=== PATIENT | female | born 1990 | race Two or more races ===

== ENCOUNTER 2018-06-17 21:00 | Emergency (ER) | payer SELFPAY ==
[2018-06-17 22:13] LABS: ABSOLUTE BASOPHILS # (AUTO) 0.1 10^3/uL (0.0-0.2); ABSOLUTE EOSINOPHILS # (AUTO) 0.1 10^3/uL (0.0-0.6); ABSOLUTE LYMPHOCYTES (AUTO) 1.7 10^3/uL (0.5-4.7); ABSOLUTE MONOCYTES (AUTO) 0.5 10^3/uL (0.1-1.4); ABSOLUTE NEUT (AUTO) 5.6 10^3/uL (1.7-8.2); BASOPHILS % (AUTO) 0.8 % (0-2); EOSINOPHILS % (AUTO) 1.4 % (0-6); HEMATOCRIT 38.4 % (36.0-47.0); HEMOGLOBIN 13.2 g/dL (12.0-15.5); LYMPHOCYTES % (AUTO) 21.7 % (13-45); MEAN CORPUSCULAR HEMOGLOBIN 30.1 pg (27.0-33.4); MEAN CORPUSCULAR HGB CONC 34.4 g/dL (32.0-36.0); MEAN CORPUSCULAR VOLUME 87 fl (80-97); MONOCYTES % (AUTO) 6.7 % (3-13); PLATELET COUNT 261 10^3/uL (150-450); RED BLOOD COUNT 4.39 10^6/uL (3.72-5.28); RED CELL DISTRIBUTION WIDTH 13.3 % (11.5-14.0); SEGMENTED NEUTROPHILS % (AUTO) 69.4 % (42-78); TOTAL CELLS COUNTED % (AUTO) 100 %; WHITE BLOOD COUNT 8.1 10^3/uL (4.0-10.5)
[2018-06-17] MEDS ORDERED: NORMAL SALINE 1000 ML 1,000 ML IV ONE (22:20)
[2018-06-17] MEDS ORDERED: ONDANSETRON HCL INJ/PF 4 MG/2 ML SDV IV ONE (22:20)
[2018-06-17] MEDS ORDERED: FAMOTIDINE INJ/PF 20 MG/2 ML SDV IV ONE (22:22)
--- NOTE | 2018-06-17 22:23 | ER Document Report ---
ED General - General Chief Complaint: Abdominal Pain Stated Complaint: ABDOMINAL PAIN Time Seen by Provider: 06/17/18 21:20 Notes: Patient is a 28-year-old female without chronic medical history although has a history of gastritis that was severe enough to result in hospitalization in the past, no prior abdominal surgical history beyond C-sections who presents with several hours of severe epigastric abdominal pain with associated nausea and vomiting. Does describe the pain in her upper abdomen as being a severe, throbbing, burning pain that radiates up into her chest. States this feels very similar to when she had gastritis in the past. She has not trying to improve her symptoms. Symptoms did start after eating dinner. Has not had fever, diarrhea or constitutional symptoms. She does not have a primary care physician. She states that in the past she was on medication to protect from gastritis but discontinued that medication at least one year ago. The history and physical exam was obtained by the provider using Japanese. A formal hospital lease out worker was offered to the patient and any family at the bedside at the beginning of the encounter and was declined. TRAVEL OUTSIDE OF THE [place] IN LAST 30 DAYS: No - Related Data Allergies/Adverse Reactions: No Known Allergies Allergy (Unverified 06/17/18 21:03) Past Medical History - General Information source: Patient - Social History Smoking Status: Never Smoker Frequency of alcohol use: None Drug Abuse: None Lives with: Spouse/Significant other Family History: Reviewed & Not Pertinent Patient has suicidal ideation: No Patient has homicidal ideation: No Renal/ Medical History: Denies: Hx Peritoneal Dialysis Past Surgical History: Reports: Hx Section Review of Systems - Review of Systems Notes: Constitutional: Negative for fever. HENT: Negative for sore throat. Eyes: Negative for visual changes. Cardiovascular: Negative for chest pain. Respiratory: Negative for shortness of breath. Gastrointestinal: Positive for abdominal pain and vomiting Genitourinary: Negative for dysuria. Musculoskeletal: Negative for back pain. Skin: Negative for rash. Neurological: Negative for headaches, weakness or numbness. 10 point ROS negative except as marked above and in HPI. Physical Exam - Vital signs Vitals: Pulse Resp BP Pulse Ox 57 L 14 95/55 L 100 06/17/18 21:16 06/17/18 21:16 06/17/18 21:16 06/17/18 21:16 Interpretation: Hypotensive Notes: PHYSICAL EXAMINATION: GENERAL: Appears moderately uncomfortable but in no acute distress HEAD: Atraumatic, normocephalic. EYES: Pupils equal round and reactive to light, extraocular movements intact, sclera anicteric, conjunctiva are normal. ENT: nares patent, oropharynx clear without exudates. Dry mucous membranes. NECK: Normal range of motion, supple without lymphadenopathy LUNGS: Breath sounds clear to auscultation bilaterally and equal. No wheezes rales or rhonchi. HEART: Regular rate and rhythm without murmurs ABDOMEN: Soft, mild focal tenderness to her epigastrium but no other localized areas of abdominal tenderness, normoactive bowel sounds. No guarding, no rebound. No masses appreciated. EXTREMITIES: Normal range of motion, no pitting or edema. No cyanosis. NEUROLOGICAL: No focal neurological deficits. Moves all extremities spontaneously and on command. PSYCH: Moderately anxious SKIN: Warm, Dry, normal turgor, no rashes or lesions noted. Course - Re-evaluation Re-evalutation: 06/17/18 22:23 Patient presents with epigastric abdominal pain with associated reflux symptoms most consistent with likely gastritis. Patient reports a previous history of the same as well as being off of her normal gastritis medications and multiple dietary indiscretions. Patient has no focal abdominal tenderness on examination and mild localized tenderness to the epigastrium. Right upper quadrant ultrasound does not demonstrate any evidence of acute cholecystitis. Lipase is normal. No LFT changes. Based on history and exam, I do not suspect ACS, pulmonary embolus, SBO, mesenteric ischemia, acute pancreatitis, biliary pathology, or an abdominal aortic dissection. Patient has had improvement of symptoms here with a GI cocktail. At this time will discharge with return precautions and follow-up recommendations. Verbal discharge instructions given a the bedside and opportunity for questions given. Medication warnings reviewed. Patient is in agreement with this plan and has verbalized understanding of return precautions and the need for primary care follow-up in the next 24-72 hours. - Vital Signs Vital signs: Temp Pulse Resp BP Pulse Ox 57 L 19 100/68 100 06/17/18 21:16 06/18/18 01:01 06/18/18 01:01 06/18/18 01:01 - Laboratory Result Diagrams: 06/17/18 22:05 06/17/18 22:05 Laboratory results interpreted by me: 06/17/18 22:05 Carbon Dioxide 20 L Creatinine 0.46 L Glucose 120 H - Diagnostic Test Radiology reviewed: Reports reviewed Discharge - Discharge Clinical Impression: Epigastric abdominal pain, Gastritis/duodenitis Nausea and vomiting Qualifiers: Vomiting type: unspecified Vomiting Intractability: non-intractable Qualified Code(s): R11.2 - Nausea with vomiting, unspecified Condition: Good Disposition: HOME, SELF-CARE Additional Instructions: Your symptoms appear to be most consistent with stomach or upper intestinal irritation. Please begin taking famotidine 40 mg in the morning and 40 mg at night. This medicine can be purchased directly [id number]. You may also take medicine such as Pepto-Bismol or Tums to assist with your pain. Please return to emergency department immediately if you have worsening of your pain, shortness of breath, vomiting, become unable to exert yourself due to pain or difficulty breathing, you pass out, or have any pain that radiates into your arms, jaw, or back. Please also return if you have any additional symptoms that are concerning to you. As we have discussed, the most important thing is lifestyle changes. You need to avoid smoking, sodas, tea, coffee, alcohol, spicy foods, and acidic foods such as citrus fruits, tomato based products, berries, and most fruit juices. Prescriptions: Famotidine 40 mg PO BID #60 tablet Sucralfate [Carafate 1 gm Tablet] 1 gm PO ACHS #120 tablet
[2018-06-17] MEDS: MORPHINE SULFATE 10 MG/ML INJ IV PRN (22:26)
[2018-06-17 22:33] LABS: ALANINE AMINOTRANSFERASE 28 U/L (9-52); ALBUMIN 4.9 g/dL (3.5-5.0); ALKALINE PHOSPHATASE 70 U/L (38-126); ANION GAP 12 (5-19); ASPARTATE AMINO TRANSFERASE 36 U/L (14-36); BILIRUBIN,DIRECT 0.3 mg/dL (0.0-0.4); BILIRUBIN,TOTAL 0.5 mg/dL (0.2-1.3); BLOOD UREA NITROGEN 13 mg/dL (7-20); CALCIUM 9.6 mg/dL (8.4-10.2); CARBON DIOXIDE 20 mmol/L (22-30); CHLORIDE 106 mmol/L (98-107); GLUCOSE 120 mg/dL (75-110); LIPASE 207.7 U/L (23-300); POTASSIUM 3.7 mmol/L (3.6-5.0); SODIUM 138.1 mmol/L (137-145); TOTAL PROTEIN 7.6 g/dL (6.3-8.2)
--- NOTE | 2018-06-17 23:44 | RADIOLOGY REPORT (SQ) ---
EXAM DESCRIPTION: US ABDOMEN LIMITED COMPLETED DATE/TME: 06/17/2018 22:22 CLINICAL HISTORY: 28 years, Female, ruq pain COMPARISON: None. TECHNIQUE: LIMITATIONS: None. FINDINGS: There are multiple gallstones. The ct mri technologist reported a negative sonographic Agosto sign. No evidence of gallbladder wall thickening or pericholecystic fluid. No evidence of biliary tree dilatation. The liver, pancreas and right kidney are unremarkable. The abdominal aorta is normal in caliber. IMPRESSION: Multiple gallstones with no sonographic evidence of cholecystitis. copyright 2010 [employer]- All Rights Reserved
[2018-06-18] MEDS: MORPHINE SULFATE 10 MG/ML INJ IV PRN ×2 (00:03→01:49)
[2018-06-18] MEDS ORDERED: MAG HYDROX/AL HYDROX/SIMETH SUSP 30 ML UDCUP PO ONE (00:11)
[2018-06-18] MEDS ORDERED: METOCLOPRAMIDE HCL ORAL SOLN 10 MG/10 ML UDCUP PO ONE (00:11)
[2018-06-18] MEDS ORDERED: LIDOCAINE 2% VISCOUS SOLN 20 ML UDCUP PO ONE (00:11)
[2018-06-18] MEDS ORDERED: SUCRALFATE 1 GM TABLET PO ONE (00:36)
[2018-06-18] MEDS ORDERED: FAMOTIDINE 20 MG TABLET PO ONE (00:36)
[2018-06-18 01:13] VITALS: BP 100/68
== END 2018-06-18 01:51 | disposition home or self-care (01) ==
LOC: ER 21:00
DX: K29.70 Gastritis, unspecified, without bleeding (principal); K29.80 Duodenitis without bleeding; R10.13 Epigastric pain; R11.2 Nausea with vomiting, unspecified
CPT/HCPCS: 99284; 96361; 96374; 96375; 36415; 83690; 84703; 85025; 80053; 76705; J3490; J2270 ×2; J2405; J7030; S0028

== ENCOUNTER 2018-06-18 14:36 | Inpatient (IN) | payer SELFPAY ==
[2018-06-18] MEDS ORDERED: NORMAL SALINE 1000 ML 1,000 ML IV ONE (16:04)
--- NOTE | 2018-06-18 16:04 | ER Document Report ---
ED Medical Screen (RME) - General Chief Complaint: Abdominal Pain Stated Complaint: ABDOMINAL PAIN Mode of Arrival: Wheelchair Information source: Relative Notes: This is a 28-year-old female that was evaluated yesterday and found to have gastritis as well as some cholelithiasis. Patient presents today with worsening abdominal pain. She became unresponsive in the ER waiting room. Is no history of headache or fever. The patient is quite lethargic in triage and is arousable with pain stimuli. Her lungs are clear and her heart is regular. Her abdomen is soft and she will moan when I palpate her stomach. Plans are for [employer] [facility]. TRAVEL OUTSIDE OF THE [place] IN LAST 30 DAYS: No - Related Data Allergies/Adverse Reactions: No Known Allergies Allergy (Verified 06/18/18 14:37) Past Medical History Renal/ Medical History: Denies: Hx Peritoneal Dialysis Past Surgical History: Reports: Hx Section Physical Exam - Vital signs Vitals: Temp Pulse Resp BP Pulse Ox 97.7 F 64 16 116/78 100 06/18/18 14:58 06/18/18 14:58 06/18/18 14:58 06/18/18 14:58 06/18/18 14:58 Course - Vital Signs Vital signs: Temp Pulse Resp BP Pulse Ox 97.7 F 64 16 116/78 100 06/18/18 14:58 06/18/18 14:58 06/18/18 14:58 06/18/18 14:58 06/18/18 14:58
[2018-06-18 16:27] LABS: ABSOLUTE BASOPHILS # (AUTO) 0.1 10^3/uL (0.0-0.2); ABSOLUTE LYMPHOCYTES (AUTO) 1.5 10^3/uL (0.5-4.7); ABSOLUTE NEUT (AUTO) 15.2 10^3/uL (1.7-8.2); BASOPHILS % (AUTO) 0.3 % (0-2); HEMATOCRIT 39.3 % (36.0-47.0); HEMOGLOBIN 13.5 g/dL (12.0-15.5); LYMPHOCYTES % (AUTO) 8.4 % (13-45); MEAN CORPUSCULAR HEMOGLOBIN 30.2 pg (27.0-33.4); MEAN CORPUSCULAR HGB CONC 34.4 g/dL (32.0-36.0); MEAN CORPUSCULAR VOLUME 88 fl (80-97); MONOCYTES % (AUTO) 5.9 % (3-13); PLATELET COUNT 288 10^3/uL (150-450); RED BLOOD COUNT 4.48 10^6/uL (3.72-5.28); RED CELL DISTRIBUTION WIDTH 13.1 % (11.5-14.0); SEGMENTED NEUTROPHILS % (AUTO) 85.4 % (42-78); TOTAL CELLS COUNTED % (AUTO) 100 %
[2018-06-18 16:32] LABS: WHITE BLOOD COUNT 17.8 10^3/uL (4.0-10.5)
[2018-06-18] MEDS ORDERED: ONDANSETRON HCL INJ/PF 4 MG/2 ML SDV IV ONE (16:44)
[2018-06-18] MEDS ORDERED: MORPHINE SULFATE 10 MG/ML INJ IV ONE ×2 (16:44→21:38)
--- NOTE | 2018-06-18 16:46 | RADIOLOGY REPORT (SQ) ---
EXAM DESCRIPTION: CT HEAD WITHOUT COMPLETED DATE/TIME: 06/18/2018 4:36 pm REASON FOR STUDY: encephalopathy COMPARISON: None. TECHNIQUE: Axial images acquired through the brain without intravenous contrast. Images reviewed wi th bone, brain and subdural windows. Additional sagittal and coronal reconstructions were generated. Images stored on PACS. All CT scanners at this facility use dose modulation, iterative reconstruction, and/or weight based d osing when appropriate to reduce radiation dose to as low as reasonably achievable (ALARA). [facility]: Dose Right [facility]: CareDose [facility]: Dose Right [facility]: Teradose 4D [facility]: [employer] RADIATION DOSE: CT Rad equipment meets quality standard of care and radiation dose reduction techniq ues were employed. CTDIvol: 53.2 mGy. DLP: 1124 mGy-cm. mGy. LIMITATIONS: None. FINDINGS: VENTRICLES: Normal size and contour. CEREBRUM: No masses. No hemorrhage. No midline shift. No evidence for acute infarction. Normal gra y/white matter differentiation. No areas of low density in the white matter. CEREBELLUM: No masses. No hemorrhage. No alteration of density. No evidence for acute infarction. EXTRAAXIAL SPACES: No fluid collections. No masses. ORBITS AND GLOBE: No intra- or extraconal masses. Normal contour of globe without masses. CALVARIUM: No fracture. PARANASAL SINUSES: No fluid or mucosal thickening. SOFT TISSUES: No mass or hematoma. OTHER: No other significant finding. IMPRESSION: NORMAL BRAIN CT WITHOUT CONTRAST. EVIDENCE OF ACUTE STROKE: NO. COMMENT: Quality ID # 436: Final reports with documentation of one or more dose reduction techniques (e.g., Automated exposure control, adjustment of the mA and/or kV according to patient size, use of iterative reconstruction technique) TECHNICAL DOCUMENTATION: JOB ID: [id number] [employer]- All Rights Reserved Reading location - IP/workstation name: [email or web address]
[2018-06-18 17:12] LABS: ALANINE AMINOTRANSFERASE 40 U/L (9-52); ALBUMIN 4.3 g/dL (3.5-5.0); ALKALINE PHOSPHATASE 58 U/L (38-126); ANION GAP 9 (5-19); ASPARTATE AMINO TRANSFERASE 24 U/L (14-36); BILIRUBIN,TOTAL 0.8 mg/dL (0.2-1.3); BLOOD UREA NITROGEN 8 mg/dL (7-20); CALCIUM 9.1 mg/dL (8.4-10.2); CARBON DIOXIDE 23 mmol/L (22-30); CHLORIDE 100 mmol/L (98-107); GLUCOSE 107 mg/dL (75-110); LIPASE 109.2 U/L (23-300); POTASSIUM 4.3 mmol/L (3.6-5.0); SODIUM 131.6 mmol/L (137-145); TOTAL PROTEIN 6.7 g/dL (6.3-8.2)
[2018-06-18 20:23] LABS: APPEARANCE,URINE CLEAR; BILIRUBIN,URINE NEGATIVE (NEGATIVE); COLOR,URINE YELLOW; GLUCOSE, URINE NEGATIVE (NEGATIVE); KETONES,URINE TRACE mg/dL (NEGATIVE); LEUKOCYTE ESTERASE,URINE NEGATIVE (NEGATIVE); NITRITE,URINE NEGATIVE (NEGATIVE); PROTEIN,URINE NEGATIVE (NEGATIVE); URINE SPECIFIC GRAVITY 1.009; UROBILINOGEN,URINE NEGATIVE mg/dL (<2.0)
--- NOTE | 2018-06-18 21:48 | RADIOLOGY REPORT (SQ) ---
EXAM DESCRIPTION: CT ABDOMEN PELVIS WITH IV CONTRAST COMPLETED DATE/TME: 06/18/2018 20:48 CLINICAL HISTORY: 28 years, Female, diffuse abd pain, increasing WBC x 2 days COMPARISON: Ultrasound 06/17/2018. TECHNIQUE: 622 Images stored on PACS. All CT scanners at this facility use dose modulation, iterative reconstruction, and/or weight based dosing when appropriate to reduce radiation dose to as low as reasonably achievable (ALARA). [facility]: Dose Right [facility]: CareDose [facility]: Dose Right [facility]: Teradose 4D [facility]: [employer] LIMITATIONS: None. FINDINGS: Limited evaluation of the lung bases shows small bibasilar effusions.. Osseous structures are grossly intact. Fatty infiltrative change to the liver. The spleen, adrenal glands, pancreas, and kidneys are unremarkable. The gallbladder is distended and there is suggestion of gallbladder wall edema/pericholecystic fluid. There is also periportal edema. Multiple gallstones were better seen on dedicated ultrasound, however acute cholecystitis is not excluded. Large amount stool in the colon. Small amount of free fluid in the pelvis. Normal appendix. No free air. No gross evidence for bowel obstruction.. IMPRESSION: Distended appearance to the gallbladder with gallbladder wall edema/pericholecystic fluid as well as. Periportal edema. Correlate for the possibility of acute cholecystitis. Small bibasilar pleural effusions. Fatty infiltrative change to the liver. Small amount of free fluid. TECHNICAL DOCUMENTATION: Quality ID # 436: Final reports with documentation of one or more dose reduction techniques (e.g., Automated exposure control, adjustment of the mA and/or kV according to patient size, use of iterative reconstruction technique) copyright 2010 [employer]- All Rights Reserved
[2018-06-18] MEDS ORDERED: PIPERACILLIN/TAZOBACTAM 3.375 GM VIAL IV ONE (22:51)
[2018-06-18] MEDS ORDERED: HYDROMORPHONE HCL INJ/PF 2 MG/ML AMPULE IV ONE (23:04)
[2018-06-18] MEDS ORDERED: DEXTROSE 50%-WATER 25 GM/50 ML DISP.SYRIN IV PRN ×2 (23:49)
[2018-06-18] MEDS ORDERED: ONDANSETRON HCL INJ/PF 4 MG/2 ML SDV IV PRN (23:49)
[2018-06-18] MEDS ORDERED: MORPHINE SULFATE 10 MG/ML INJ IV PRN (23:49)
[2018-06-18] MEDS ORDERED: GLUCAGON,HUMAN RECOMB 1 MG INJ SUBCUT PRN (23:49)
[2018-06-18] MEDS ORDERED: DEXTROSE 40% GEL 15 GM TUBE PO PRN ×2 (23:49)
[2018-06-19] MEDS: DEXTROSE 5%-LACTATED RINGERS 1,000 ML IV PRN ×2 (00:14→15:23)
--- NOTE | 2018-06-19 01:21 | ER Document Report ---
Entered by JAMES REMY SCRIBE 06/18/[id number] Acting as scribe for:CARLINE PICKERING DO ED General - General Chief Complaint: Abdominal Pain Stated Complaint: ABDOMINAL PAIN Time Seen by Provider: 06/18/18 16:05 Mode of Arrival: Wheelchair Information source: Patient, Relative - relative interprets for her Notes: Patient is a 28-year-old female that presents to the emergency department complaining abdominal pain onset yesterday. Patient presented to the emergency department yesterday and was diagnosed with gastritis and cholelithiasis. Patient states the pain has worsened today. While in the emergency department waiting room, the patient had a syncopal episode for approximately 4-5 minutes. Patient received morphine while in triage that helped relive some of her pain. Patient also complains of a headache, painful urination, urinary frequency, vomiting, nausea, and back pain. She denies any fevers of chest pain. Of significance, patient was discharged home with home with prescriptions of Famotidine and Carafate. Patient states that she attempted to take the Carafate but immediately vomited. TRAVEL OUTSIDE OF THE [place] IN LAST 30 DAYS: No - Related Data Allergies/Adverse Reactions: No Known Allergies Allergy (Verified 06/18/18 14:37) Past Medical History - General Information source: Patient, Relative - Social History Smoking Status: Never Smoker Cigarette use (# per day): No Chew tobacco use (# tins/day): No Smoking Education Provided: No Frequency of alcohol use: None Family History: Reviewed & Not Pertinent Patient has suicidal ideation: - UNABLE TO EVAL Patient has homicidal ideation: - UNABLE TO EVAL Past Surgical History: Reports: Hx Section Review of Systems - Review of Systems Constitutional: No symptoms reported EENT: No symptoms reported Cardiovascular: No symptoms reported Respiratory: No symptoms reported Gastrointestinal: Abdominal pain, Nausea, Vomiting Genitourinary: See HPI, Burning, Frequency Female Genitourinary: No symptoms reported Musculoskeletal: See HPI, Back pain Skin: No symptoms reported Hematologic/Lymphatic: No symptoms reported Neurological/Psychological: See HPI, Headaches Physical Exam - Vital signs Vitals: Temp Pulse Resp BP Pulse Ox 97.7 F 64 16 116/78 100 06/18/18 14:58 06/18/18 14:58 06/18/18 14:58 06/18/18 14:58 06/18/18 14:58 - Notes Notes: GENERAL: Sleeping initially, awakens when call name. Appears uncomfortable. No acute distress. HEAD: Normocephalic, atraumatic. EYES: Pupils equal, round, and reactive to light. Extraocular movements intact. ENT: Oral mucosa moist, tongue midline. NECK: Full range of motion. Supple. Trachea midline. LUNGS: Clear to auscultation bilaterally, no wheezes, rales, or rhonchi. No respiratory distress. HEART: Regular rate and rhythm. No murmurs, gallops, or rubs. ABDOMEN: Soft, diffusely tender to palpation, worse epigastrically. Non- distended. Bowel sounds present in all 4 quadrants. EXTREMITIES: Moves all 4 extremities spontaneously. NEUROLOGICAL: Alert and oriented x3. Normal speech. PSYCH: Normal affect, normal mood. SKIN: Warm, dry, normal turgor. No rashes or lesions noted. Course - Re-evaluation Re-evalutation: 06/18/18 23:05 CBC shows leukocytosis of 17.8, this is doubled since yesterday, CMP shows low sodium at 131.6 otherwise unremarkable, no elevation in LFTs, lipase is normal, test is negative, urinalysis shows small blood and trace ketones. CT scan of the head was ordered based off of one episode of becoming unresponsive in the waiting room, I suspect this was actually related to hyperventilation fr om pain and anxiety as she woke up within a few minutes and had no neurologic deficits. CT scan was negative. Based off of the increased white blood cell count and continuing abdominal tenderness palpation patient had a CT scan of the abdomen pelvis ordered which showed pericholecystic fluid and gallbladder wall edema, this is consistent with cholecystitis, discussed with Dr. Peterson who agrees to admit the patient to his service for cholecystectomy tomorrow. Recommend starting Zosyn. - Vital Signs Vital signs: Temp Pulse Resp BP Pulse Ox 97.7 F 64 16 116/78 100 06/18/18 14:58 06/18/18 14:58 06/18/18 14:58 06/18/18 14:58 06/18/18 14:58 - Laboratory Result Diagrams: 06/18/18 16:05 06/18/18 16:47 Laboratory results interpreted by me: 06/18/18 06/18/18 06/18/18 16:05 16:47 20:00 WBC 17.8 H D Seg Neutrophils % 85.4 H Lymphocytes % 8.4 L Absolute Neutrophils 15.2 H Sodium 131.6 L Creatinine 0.50 L Urine Ketones TRACE H Urine Blood SMALL H Discharge - Discharge Clinical Impression: Acute cholecystitis Condition: Fair Disposition: ADMITTED INPATIENT Admitting Provider: Surgicalist - [facility] Unit Admitted: Surgical Floor Scribe Attestation: 06/19/18 01:21 I personally performed the services described in the documentation, reviewed and edited the documentation which was dictated to the scribe in my presence, and it accurately records my words and actions. I personally performed the services described in the documentation, reviewed and edited the documentation which was dictated to the scribe in my presence, and it accurately records my words and actions.
[2018-06-19] MEDS ORDERED: PIPERACILLIN/TAZOBACTAM 3.375 GM VIAL IV PRN (05:00)
[2018-06-19] MEDS: MORPHINE SULFATE 10 MG/ML INJ IV PRN ×4 (05:47→20:03)
--- NOTE | 2018-06-19 06:05 | PDOC H&P ---
History of Present Illness Admission Date/PCP: 06/18/18 23:19 Patient complains of: Epigastric abdominal pain, nausea, and vomiting. History of Present Illness: SHERRIE DORAN is a 28 year old female with a 2-3-day history of epigastric abdominal pain. It has worsened steadily throughout this time. The patient presented to the ER several days ago and was sent home with medications for gastritis. Her pain worsened, and she re-presented. The patient was found to have gallbladder wall thickening, distention, and Agosto sign. I was then consulted for evaluation of the patient's gallbladder. The patient reports epigastric pain, nausea, and vomiting. Her pain is sharp and stabbing. It is unrelenting. Nothing makes her pain better. Palpation makes it worse. The patient has been unable to eat anything for 24 hours due to the pain. The pain does radiate to her right side. Patient denies chest pain, fevers, chills, headache, melena, hematochezia, hematemesis, blurry vision, sore throat, orthostasis, fatigue, or malaise. Past Surgical History Past Surgical History: Reports: Section Social History Smoking Status: Never Smoker Hx Recreational Drug Use: No Family History Family History: Reviewed & Not Pertinent Parental Family History Reviewed: Yes Children Family History Reviewed: Yes Sibling(s) Family History Reviewed.: Yes Medication/Allergy Home Medications: Famotidine 40 mg PO BID #60 tablet 06/18/18 Sucralfate [Carafate 1 gm Tablet] 1 gm PO ACHS #120 tablet 06/18/18 Allergies/Adverse Reactions: No Known Allergies Allergy (Verified 06/18/18 14:37) Review of Systems Constitutional: ABSENT: chills, fatigue, fever(s), weakness Eyes: ABSENT: visual disturbances Ears: ABSENT: hearing changes Nose, Mouth, and Throat: ABSENT: sore throat Cardiovascular: ABSENT: chest pain, palpitations Respiratory: ABSENT: cough, dyspnea Gastrointestinal: PRESENT: abdominal pain, nausea, vomiting Genitourinary: ABSENT: dysuria Musculoskeletal: ABSENT: back pain Integumentary: ABSENT: pruritus, rash Neurological: ABSENT: confusion, convulsions, dizziness Psychiatric: ABSENT: anxiety, depression Endocrine: ABSENT: cold intolerance, heat intolerance Hematologic/Lymphatic: ABSENT: easy bleeding, easy bruising Physical Exam Vital Signs: Temp Pulse Resp BP Pulse Ox 100.4 F 64 22 H 113/70 98 06/19/18 00:00 06/18/18 14:58 06/19/18 01:31 06/19/18 01:31 06/19/18 01:31 Intake & Output 06/17/18 06/18/18 06/19/18 06:59 06:59 06:59 Intake Total 1000 Balance 1000 Weight 75.4 kg General appearance: PRESENT: no acute distress, cooperative Head exam: PRESENT: atraumatic, normocephalic Eye exam: PRESENT: EOMI, PERRLA. ABSENT: scleral icterus Mouth exam: PRESENT: moist, neck supple Teeth exam: ABSENT: poor dentation Neck exam: ABSENT: meningismus, tenderness, thyromegaly, tracheal deviation Respiratory exam: PRESENT: clear to auscultation ema. ABSENT: chest wall tenderness Cardiovascular exam: PRESENT: RRR Pulses: PRESENT: normal radial pulses Vascular exam: PRESENT: normal capillary refill. ABSENT: pallor GI/Abdominal exam: PRESENT: Agosto's sign, soft, tenderness - Right upper quadrant. ABSENT: distended, rebound Rectal exam: PRESENT: deferred Extremities exam: ABSENT: clubbing Musculoskeletal exam: ABSENT: deformity Neurological exam: PRESENT: alert, awake, oriented to person, oriented to place, oriented to time, oriented to situation, CN II-XII grossly intact Psychiatric exam: ABSENT: agitated, anxious, depressed Focused psych exam: ABSENT: delusional Skin exam: ABSENT: cyanosis, erythema, jaundice Results Laboratory Results: 06/18/18 16:05 06/18/18 16:47 06/18/18 06/18/18 06/18/18 16:05 16:05 16:47 WBC 17.8 H D RBC 4.48 Hgb 13.5 Hct 39.3 MCV 88 MCH 30.2 MCHC 34.4 RDW 13.1 Plt Count 288 Seg Neutrophils % 85.4 H Lymphocytes % 8.4 L Monocytes % 5.9 Eosinophils % 0.0 Basophils % 0.3 Absolute Neutrophils 15.2 H Absolute Lymphocytes 1.5 Absolute Monocytes 1.0 Absolute Eosinophils 0.0 Absolute Basophils 0.1 Sodium Cancelled 131.6 L Potassium Cancelled 4.3 Chloride Cancelled 100 Carbon Dioxide Cancelled 23 Anion Gap Cancelled 9 BUN Cancelled 8 Creatinine Cancelled 0.50 L Est GFR ( Amer) Cancelled > 60 Est GFR (Non-Af Amer) Cancelled > 60 Glucose Cancelled 107 Calcium Cancelled 9.1 Total Bilirubin Cancelled 0.8 AST Cancelled 24 ALT Cancelled 40 Alkaline Phosphatase Cancelled 58 Total Protein Cancelled 6.7 Albumin Cancelled 4.3 Lipase Cancelled 109.2 Urine Color Urine Appearance Urine pH Ur Specific Negley Urine Protein Urine Glucose (UA) Urine Ketones Urine Blood Urine Nitrite Ur Leukocyte Esterase Urine WBC (Auto) Urine RBC (Auto) 06/18/18 20:00 WBC RBC Hgb Hct MCV MCH MCHC RDW Plt Count Seg Neutrophils % Lymphocytes % Monocytes % Eosinophils % Basophils % Absolute Neutrophils Absolute Lymphocytes Absolute Monocytes Absolute Eosinophils Absolute Basophils Sodium Potassium Chloride Carbon Dioxide Anion Gap BUN Creatinine Est GFR ( Amer) Est GFR (Non-Af Amer) Glucose Calcium Total Bilirubin AST ALT Alkaline Phosphatase Total Protein Albumin Lipase Urine Color YELLOW Urine Appearance CLEAR Urine pH 6.0 Ur Specific [place] 1.009 Urine Protein NEGATIVE Urine Glucose (UA) NEGATIVE Urine Ketones TRACE H Urine Blood SMALL H Urine Nitrite NEGATIVE Ur Leukocyte Esterase NEGATIVE Urine WBC (Auto) 1 Urine RBC (Auto) 1 Impressions: Head CT 06/18/18 16:04 IMPRESSION: NORMAL BRAIN CT WITHOUT CONTRAST. EVIDENCE OF ACUTE STROKE: NO. Abdomen/Pelvis CT 06/18/18 20:48 IMPRESSION: Distended appearance to the gallbladder with gallbladder wall edema/pericholecystic fluid as well as. Periportal edema. Correlate for the possibility of acute cholecystitis. Small bibasilar pleural effusions. Fatty infiltrative change to the liver. Small amount of free fluid. TECHNICAL DOCUMENTATION: Quality ID # [id number]: Final reports with documentation of one or more dose reduction techniques (e.g., Automated exposure control, adjustment of the mA and/or kV according to patient size, use of iterative reconstruction technique) copyright 2011 [employer]- All Rights Reserved Assessment & Plan - Diagnosis (1) Acute cholecystitis Is this a current diagnosis for this admission?: Yes - Plan Summary Plan Summary: This is a 28-year-old female with epigastric abdominal pain, leukocytosis, and thickening of her gallbladder on CT. I believe the patient is experiencing acute cholecystitis. I will admit the patient, start IV antibiotics, and plan for cholecystectomy. There is a slight language barrier, however the patient has family members who are able to translate. Risks/benefits discussed, informed consent obtained, and all questions answered.
[2018-06-19] MEDS: PIPERACILLIN SODIUM/TAZOBACTAM 3.375 GM in NORMAL SALINE 100 ML IV SCH ×3 (06:11→17:22)
[2018-06-19 06:53] LABS: HEMATOCRIT 39.1 % (36.0-47.0); HEMOGLOBIN 13.4 g/dL (12.0-15.5); MEAN CORPUSCULAR HEMOGLOBIN 29.8 pg (27.0-33.4); MEAN CORPUSCULAR HGB CONC 34.2 g/dL (32.0-36.0); MEAN CORPUSCULAR VOLUME 87 fl (80-97); PLATELET COUNT 244 10^3/uL (150-450); RED BLOOD COUNT 4.49 10^6/uL (3.72-5.28); RED CELL DISTRIBUTION WIDTH 13.2 % (11.5-14.0); WHITE BLOOD COUNT 20.5 10^3/uL (4.0-10.5)
[2018-06-19 07:14] LABS: ABSOLUTE LYMPHOCYTES# (MANUAL) 0.6 10^3/uL (0.5-4.7); ABSOLUTE NEUTROPHILS# (MANUAL) 18.9 10^3/uL (1.7-8.2); BAND NEUTROPHILS % (MANUAL) 1 % (3-5); BASOPHILS % (MANUAL) 0 % (0-2); EOSINOPHILS % (MANUAL) 0 % (0-6); LYMPHOCYTES % (MANUAL) 3 % (13-45); MONOCYTES % (MANUAL) 5 % (3-13); SEGMENTED NEUTROPHILS % (MAN) 91 % (42-78); TOTAL CELLS COUNTED 100
[2018-06-19 07:15] LABS: PLATELET CLUMPS PRESENT; PLATELET COMMENT ADEQUATE; PLATELET LARGE PRESENT; SCHISTOCYTES SLIGHT; TOXIC GRANULATION SLIGHT
[2018-06-19 07:21] LABS: ALANINE AMINOTRANSFERASE 30 U/L (9-52); ALBUMIN 3.5 g/dL (3.5-5.0); ALKALINE PHOSPHATASE 47 U/L (38-126); ANION GAP 8 (5-19); ASPARTATE AMINO TRANSFERASE 18 U/L (14-36); BILIRUBIN,DIRECT 0.2 mg/dL (0.0-0.4); BLOOD UREA NITROGEN 6 mg/dL (7-20); CALCIUM 8.6 mg/dL (8.4-10.2); CARBON DIOXIDE 26 mmol/L (22-30); CHLORIDE 100 mmol/L (98-107); GLUCOSE 132 mg/dL (75-110); POTASSIUM 3.7 mmol/L (3.6-5.0); SODIUM 134.3 mmol/L (137-145)
[2018-06-19] MEDS ORDERED: FENTANYL CITRATE INJ/PF 100 MCG/2 ML AMPUL ONE (08:45)
[2018-06-19] MEDS ORDERED: HYDROMORPHONE HCL INJ/PF 2 MG/ML AMPULE ONE (08:45)
[2018-06-19] MEDS ORDERED: MIDAZOLAM 2 MG/2 ML INJ ONE (08:46)
[2018-06-19] MEDS ORDERED: PROPOFOL INJ 200 MG/20 ML VIAL IV ONE (08:46)
[2018-06-19] MEDS ORDERED: ACETAMINOPHEN 1,000 MG/100 ML RTUPB IV ONE (08:46)
[2018-06-19] MEDS ORDERED: ONDANSETRON HCL INJ/PF 4 MG/2 ML SDV ONE (08:48)
[2018-06-19] MEDS ORDERED: SUCCINYLCHOLINE CHLORIDE INJ 200 MG/10 ML VIAL ONE (08:48)
[2018-06-19] MEDS ORDERED: DEXAMETHASONE SOD PHOSPHATE INJ 4 MG/1 ML VIAL ONE (08:48)
[2018-06-19] MEDS ORDERED: ROCURONIUM BROMIDE INJ 50 MG/5 ML VIAL IV ONE (08:48)
[2018-06-19] MEDS ORDERED: LIDOCAINE 2% INJ-PF (20 MG/ML) 2 ML AMPUL ONE (08:48)
[2018-06-19] MEDS ORDERED: BUPIVACAINE HCL 0.5%-EPI 1:200000 INJ/PF 30 ML VIAL ONE (10:08)
[2018-06-19 11:39] LABS: URINE AMPHETAMINES SCREEN NEGATIVE; URINE BARBITURATES SCREEN NEGATIVE; URINE BENZODIAZEPINES SCREEN NEGATIVE; URINE COCAINE SCREEN NEGATIVE; URINE MARIJUANA (THC) SCREEN NEGATIVE; URINE METHADONE SCREEN NEGATIVE; URINE PHENCYCLIDINE SCREEN NEGATIVE
[2018-06-19] MEDS ORDERED: FENTANYL CITRATE INJ/PF 100 MCG/2 ML AMPUL IV PRN ×3 (11:48)
[2018-06-19] MEDS ORDERED: DIPHENHYDRAMINE HCL 50 MG/ML VIAL IV PRN (11:48)
[2018-06-19] MEDS ORDERED: PROMETHAZINE HCL INJ 25 MG/1 ML VIAL IV PRN (11:48)
[2018-06-19] MEDS ORDERED: SUGAMMADEX SODIUM 200 MG/2 ML SDV IV ONE (12:26)
--- NOTE | 2018-06-19 15:37 | OPERATIVE REPORT E ---
Operative Report NAME: SHERRIE DORAN : 1990 AGE: 28Y DATE OF SURGERY: 06/19/2018 ROOM: 209 PREOPERATIVE DIAGNOSIS: Acute cholecystitis. POSTOPERATIVE DIAGNOSES: 1. Acute cholecystitis. 2. Cholelithiasis. OPERATION: Laparoscopic cholecystectomy. SURGEON: SHARONA FERNANDO M.D. ANESTHESIA: General. INDICATIONS: This is a 28-year-old female complaining of severe right upper quadrant pains. She had a CAT scan of the abdomen which showed a thickened gallbladder wall with suggestion of acute cholecystitis. She is markedly tender in the right upper quadrant. DESCRIPTION OF PROCEDURE: After adequate general anesthesia, the patient was placed in a supine position and the abdomen prepped and draped in the usual sterile fashion. Appropriate time out was called. Next, an infraumbilical midline incision was made and deepened through the fascia. The fascia was then grasped with Tre clamps and incised and divided in the middle, 0-Vicryl sutures were placed on each side of the Tre clamp, and the clamps were removed. Next, finger dissection into the abdominal cavity showed no evidence of significant adhesions noted. Next, a Martín trocar was then inserted through the fascia into the abdominal cavity and CO2 insufflated to a pressure of 15 mmHg. Next, 3 other trocars were placed, two 5 mm in the right upper quadrant and a 12 mm in the subxiphoid area under direct vision. The gallbladder was noted to be markedly inflamed with some small amount of dried exudate around it with omentum partially covering the gallbladder. The omentum was then bluntly lysed. Next the gallbladder was noted to be very tense and, therefore, with the use of a long needle the bile was suctioned out. Some of the bile was sent for C and S. At this point the gallbladder was able to be grasped at the tip with a grasper and the infundibulum also grasped after partial dissection with the use of the [place] dissector. There was a small amount of edema that was bluntly dissected off. There appeared to be a stone right at the infundibulum and the stone was pushed back inside the gallbladder after noticing a relatively small cystic duct. The cystic duct was then dissected by lifting on the infundibulum. The cystic artery was also dissected, and after the critical view of safety identified the cystic duct was then clipped proximally at least 3 times and a clip in the gallbladder once and divided between the distal clips. A small amount of bilious material extruded out into the abdominal cavity when the gallbladder clip was dislodged inadvertently. This gallbladder opening was then grasped with a grasper and controlled the bile leak. The cystic artery was then clipped proximally and then divided with the use of Harmonic [place]. The gallbladder was then dissected off the liver bed with the use of Harmonic [place]. Part of the removal was done through peeling out of the gallbladder from the liver bed. Prior to removal of the gallbladder completely from the liver bed, the liver bed was then irrigated with saline solution and hemostasis controlled with spatula cautery. The gallbladder bed was then irrigated and no evidence of active bleeding noted, and a Surgicel was placed on the liver bed just to make sure of hemostasis.. Next the gallbladder was completely removed from the liver bed and placed in an Endobag. The Endobag was pulled out through the umbilical port. The umbilical port needed to be slightly enlarged through the use of scissors. The gallbladder was then removed and was noted to have a big single stone at least 2 cm in diameter. The Martín rochar was then put back. A 15-Yi round Hernando drain was then placed through the right lowermost trocar site and brought around the liver bed. Drainage catheter was then anchored to the skin with 2-0 silk. Next, all the trocars were then removed. There was a small amount of adhesion close to the umbilicus that was left in place. Next, the infraumbilical fascial defect was then closed with 2 soynqu-ou-ewldu sutures of 0 Vicryl and a single suture in the middle. Also, the stay sutures were tied together. The umbilical incision was then irrigated. All the skin incisions were then closed with running subcuticular closure using 4-0 Vicryl undyed. Steri-Strips were placed over the incision sites. The patient tolerated the procedure well. Needle, instrument, and sponge counts were all correct. Estimated blood loss was about 30 mL. The patient was brought to recovery in satisfactory condition. DICTATING PHYSICIAN: SHARONA FERNANDO M.D. [id number] PHY#: [id number] ID: [id number] JOB#: [id number] ACCT: [id number] cc:SHARONA FERNANDO M.D. > MANDEEP
[2018-06-19] MEDS: HYDROMORPHONE HCL INJ/PF 2 MG/ML AMPULE IV PRN (22:35)
[2018-06-20] MEDS: PIPERACILLIN SODIUM/TAZOBACTAM 3.375 GM in NORMAL SALINE 100 ML IV SCH ×4 (00:03→18:55)
[2018-06-20] MEDS: HYDROMORPHONE HCL INJ/PF 2 MG/ML AMPULE IV PRN ×2 (03:21→06:36)
[2018-06-20] MEDS: DEXTROSE 5%-LACTATED RINGERS 1,000 ML IV PRN (05:59)
--- NOTE | 2018-06-20 09:11 | PDOC PROGRESS REPORT ---
Subjective Progress Note for:: 06/20/18 Subjective:: abdominal pains Reason For Visit: CHOLECYSTITIS Physical Exam Vital Signs: Temp Pulse Resp BP Pulse Ox 98.3 F 95 19 96/57 L 95 06/20/18 08:01 06/20/18 08:01 06/20/18 08:01 06/20/18 08:01 06/20/18 08:01 Intake & Output 06/19/18 06/20/18 06/21/18 06:59 06:59 06:59 Intake Total 1000 2990 Output Total 1590 Balance 1000 1400 Weight 75.4 kg 80.1 kg Results Laboratory Results: 06/19/18 06:38 06/19/18 06:38 Impressions: Head CT 06/18/18 16:04 IMPRESSION: NORMAL BRAIN CT WITHOUT CONTRAST. EVIDENCE OF ACUTE STROKE: NO. Abdomen/Pelvis CT 06/18/18 20:48 IMPRESSION: Distended appearance to the gallbladder with gallbladder wall edema/pericholecystic fluid as well as. Periportal edema. Correlate for the possibility of acute cholecystitis. Small bibasilar pleural effusions. Fatty infiltrative change to the liver. Small amount of free fluid. TECHNICAL DOCUMENTATION: Quality ID # [id number]: Final reports with documentation of one or more dose reduction techniques (e.g., Automated exposure control, adjustment of the mA and/or kV according to patient size, use of iterative reconstruction technique) copyright 2011 [employer]- All Rights Reserved Assessment & Plan - Time Time Spent with patient: 15-24 minutes - Inpatient Certification Medical Necessity: Need For IV Fluids, Need for IV Antibiotics - WBC 20,000 last night post op - Plan Summary Plan Summary: Post op day 1 post lap gaurang for acute cholecystitis, cholelithiasis Continue IV antibiotics Increse diet and activity
[2018-06-20 09:14] LABS: ABSOLUTE LYMPHOCYTES (AUTO) 1.5 10^3/uL (0.5-4.7); ABSOLUTE MONOCYTES (AUTO) 0.6 10^3/uL (0.1-1.4); ABSOLUTE NEUT (AUTO) 11.6 10^3/uL (1.7-8.2); BASOPHILS % (AUTO) 0.2 % (0-2); EOSINOPHILS % (AUTO) 0.2 % (0-6); HEMATOCRIT 34.8 % (36.0-47.0); HEMOGLOBIN 11.8 g/dL (12.0-15.5); LYMPHOCYTES % (AUTO) 10.9 % (13-45); MEAN CORPUSCULAR VOLUME 88 fl (80-97); MONOCYTES % (AUTO) 4.1 % (3-13); PLATELET COUNT 224 10^3/uL (150-450); RED BLOOD COUNT 3.95 10^6/uL (3.72-5.28); RED CELL DISTRIBUTION WIDTH 13.4 % (11.5-14.0); SEGMENTED NEUTROPHILS % (AUTO) 84.6 % (42-78); TOTAL CELLS COUNTED % (AUTO) 100 %; WHITE BLOOD COUNT 13.7 10^3/uL (4.0-10.5)
[2018-06-20] MEDS: OXYCODONE-ACETAMINOPHEN 5-325 MG TABLET PO PRN ×3 (11:07→20:40)
[2018-06-21] MEDS: PIPERACILLIN SODIUM/TAZOBACTAM 3.375 GM in NORMAL SALINE 100 ML IV SCH ×2 (00:43→05:40)
[2018-06-21] MEDS: OXYCODONE-ACETAMINOPHEN 5-325 MG TABLET PO PRN ×2 (00:43→05:39)
[2018-06-21 09:38] VITALS: BP 92/54
--- NOTE | 2018-06-21 09:57 | DISCHARGE SUMMARY E ---
Discharge Summary NAME: SHERRIE DORAN : 1990 AGE: 28Y ADMITTED: 06/18/2018 DISCHARGED: 06/21/2018 PROCEDURE DONE: Laparoscopic cholecystectomy on 06/19/2018. FINAL DIAGNOSES: 1. Acute cholecystitis. 2. Cholelithiasis. HOSPITAL COURSE: A 28-year-old female with severe right upper quadrant pains just prior to being seen in the ED. She had a CAT scan of the abdomen which showed a thickened gallbladder wall and elevated white count. She then underwent laparoscopic cholecystectomy on 06/19/[address] Brady. She had a thickened and distended gallbladder with at least a 2 cm gallstone impacted right at the infundibulum. Postoperatively she did complain of pains from the incision sites. She did have significant response to pains since she apparently passed out in the emergency room prior to being admitted because of the pain. At any rate, she is responding well to the Percocet, and the drain that I placed was removed on the day of discharge; not much drainage from the drain site. The patient was then discharged improved on 06/21/2018 with the above final diagnosis. The patient will be followed up in the surgical clinic in 2 weeks. A prescription for Percocet 5 mg/325 mg 1 every 6 hours p.r.n. for pain for the next few days x15 pills. DICTATING PHYSICIAN: SHARONA BRADY M.D. [id number] PHY#: [id number] ID: [id number] JOB#: [id number] ACCT: [id number] cc:Gumaro CLAYTON MD, M.D. WILLIAM HOSEK, M.D. >
== END 2018-06-21 11:09 | disposition home or self-care (01) | DRG 419 ==
LOC: ER 14:36 → EH 23:19 → 2N 06-19 08:57
PROVIDERS: ATTEND Surgery
PROC: 0FT44ZZ Resection of Gallbladder, Percutaneous Endoscopic Approach (ICD-10-PCS; principal; 2018-06-19 10:00)
DX: K80.00 Calculus of gallbladder with acute cholecystitis without obstruction (principal)
CPT/HCPCS: 36415; 70450; 74177; 790; 80053; 80307; 81001; 82962; 83690; 84702; 85025; 87070; 87075; 87077; 87186; 87205; 88304; 96361; 96374; 96375; 99285; J0131; J0330; J1100; J1170; J2250; J2270; J2405; J2543; J2704; J3010; J3490; J7030

== ENCOUNTER 2018-07-23 21:29 | Emergency (ER) | payer SELFPAY ==
[2018-07-24] MEDS ORDERED: CEPHALEXIN 500 MG CAPSULE PO ONE (00:55)
--- NOTE | 2018-07-24 01:07 | ER Document Report ---
ED Wound - General Chief Complaint: Post Surgical Bleeding Stated Complaint: ABDOMINAL BLEEDING FROM INCISION Time Seen by Provider: 07/24/18 00:53 Primary Care Provider: [facility] [Provider Group] - Follow up as needed Notes: Patient is a 28-year-old female that comes to the emergency department for chief complaint of pain and drainage from a wound just below the umbilicus, she had a cholecystectomy by Dr. Brady at this facility reportedly on 06/23/2017, she states that shortly after the surgery the area seemed open slightly, several days later she started having some pus drainage from the area, today she began having a small amount of bleeding. She reports pain around the area directly but denies abdominal pain otherwise, she is eating and drinking normally, moving her bowels normally, denies vomiting, denies fever or chills. She denies any other complaints. She is Macedonian-speaking, conversation was performed using interpretation system over the phone. TRAVEL OUTSIDE OF THE [place] IN LAST 30 DAYS: No - Related Data Allergies/Adverse Reactions: No Known Allergies Allergy (Verified 06/18/18 14:37) Past Medical History - General Information source: Patient - Social History Smoking Status: Never Smoker Chew tobacco use (# tins/day): No Frequency of alcohol use: None Drug Abuse: None Lives with: Family Family History: Reviewed & Not Pertinent Patient has suicidal ideation: No Patient has homicidal ideation: No Renal/ Medical History: Denies: Hx Peritoneal Dialysis Past Surgical History: Reports: Hx Section - Immunizations Immunizations up to date: Yes Hx Diphtheria, Pertussis, Tetanus Vaccination: Yes Review of Systems - Review of Systems Constitutional: No symptoms reported EENT: No symptoms reported Cardiovascular: No symptoms reported Respiratory: No symptoms reported Gastrointestinal: No symptoms reported Genitourinary: No symptoms reported Female Genitourinary: No symptoms reported Musculoskeletal: No symptoms reported Skin: See HPI Hematologic/Lymphatic: No symptoms reported Neurological/Psychological: No symptoms reported Physical Exam - Vital signs Vitals: Temp Pulse Resp BP Pulse Ox 98.0 F 64 20 107/60 98 07/23/18 22:00 07/23/18 22:00 07/23/18 22:00 07/23/18 22:00 07/23/18 22:00 - Notes Notes: GENERAL: Alert, interacts well. No acute distress. HEAD: Normocephalic, atraumatic. EYES: Pupils equal, round, and reactive to light. Extraocular movements intact. ENT: Oral mucosa moist, tongue midline. Oropharynx unremarkable. Airway patent. Nares patent, no nasal septal hematoma, TM's intact. NECK: Full range of motion. Supple. Trachea midline. LUNGS: Clear to auscultation bilaterally, no wheezes, rales, or rhonchi. No respiratory distress. HEART: Regular rate and rhythm. No murmur ABDOMEN: Surgical scars and healed wounds consistent with cholecystectomy, over the area just inferior to the umbilicus the edge of the wound appears to have opened and it did not heal, there is some mild surrounding erythema, there is no noted purulence or bleeding at this time, there is some tenderness over the area and slight warmth. Otherwise unremarkable abdomen, soft and benign otherwise. GENITOURINARY: Deferred EXTREMITIES: Moves all 4 extremities spontaneously. No edema, normal radial and dorsalis pedis pulses bilaterally. No cyanosis. BACK: no cervical, thoracic, lumbar midline tenderness. No saddle anesthesia, normal distal neurovascular exam. NEUROLOGICAL: Alert and oriented x3. Normal speech. [cranial nerves II through XII grossly intact]. PSYCH: Normal affect, normal mood. SKIN: Warm, dry, normal turgor. No rashes or lesions noted. Course - Re-evaluation Re-evalutation: Area appears to be a nonhealed wound which has then developed some secondary cellulitis. Abdomen is soft and benign. Unremarkable vital signs, patient well-appearing. The area is not deep, I can see the bottom of the wound easily, the area is very small in circumference. I called and spoke with general surgeon manager infusion, Dr. Smart, he recommends dry dressing, Keflex, and close follow-up instructions with return precautions. I discussed this in detail with patient. Patient states understanding and agreement. - Vital Signs Vital signs: Temp Pulse Resp BP Pulse Ox 98.2 F 70 18 108/69 99 07/24/18 01:24 07/24/18 01:24 07/24/18 01:24 07/24/18 01:24 07/24/18 01:24 Discharge - Discharge Clinical Impression: Wound infection Condition: Stable Disposition: HOME, SELF-CARE Additional Instructions: Habl con el Dr. Smart ([facility]) esta noche. [place] herida no curativa tiene roxana infeccin en la piel. [place] el antibitico Keflex meghana est escrito. Mantenga un vendaje seco sobre el kristyn. Si el kristyn no luong juan en 2 redding, acuda a la [facility] [place] (samantha la referencia) para un nuevo control y ms tratamiento. Regrese si est peor (si el enrojecimiento se propaga, si el dolor empeora, si tiene fiebre o si algo no est telma). Prescriptions: Cephalexin Monohydrate [Keflex 500 mg Capsule] 500 mg PO QID #28 capsule Referrals: [facility] [Provider Group] - Follow up as needed
[2018-07-24 01:24] VITALS: BP 108/69
== END 2018-07-24 01:25 | disposition home or self-care (01) ==
LOC: ER 21:29
DX: K91.840 Postprocedural hemorrhage of a digestive system organ or structure following a digestive system procedure (principal); Z90.49 Acquired absence of other specified parts of digestive tract
CPT/HCPCS: 99283

== ENCOUNTER → 2019-05-31 | Outpatient (CLI) | payer SELFPAY ==
--- NOTE | 2019-06-02 07:39 | RADIOLOGY REPORT (SQ) ---
EXAM DESCRIPTION: U/S [id number] TRNABD 1GES W/ODOP COMPLETED DATE/TIME: 05/31/2019 3:51 pm REASON FOR STUDY: Z34.81 ENCOUNTER FOR SUPRVSN OF NORMAL , FIRST TRIMESTER Z34.81 ENCOUNTE R FOR SUPRVSN OF NORMAL , FIRST TRIM COMPARISON: None. TECHNIQUE: Transabdominal static and realtime grayscale images acquired of the pelvis. Additional se lected spectral and color Doppler images recorded. All images stored [facility] PACs. [facility]. CLINICAL DATES: Last menses 03/25/2019 (estimated gestational age 9 weeks 4 days) LIMITATIONS: None. FINDINGS: FETUS: Single Living intrauterine . ULTRASOUND EGA: 10 weeks 3 days ULTRASOUND MADY: 12/24/2019 EFW: Not applicable less than 20 weeks. CRL: 3.5 cm FHR: 175 beats per minute. SURVEY: Too early to assess AMNIOTIC FLUID: Adequate amount. PLACENTA: Not yet developed due to early gestation. SUBCHORIONIC BLEED: Yes SIZE OF BLEED: Moderate size, 3.5 x 1.8 cm in size UTERUS: No masses. No anomalies. Uterus is 8 x 7 x 10 cm in size CERVICAL LENGTH: 2.1 cm Closed. RIGHT ADNEXA: Ovary not identified due to poor acoustical window. No adnexal free fluid. No adnexal masses. LEFT ADNEXA: Ovary not identified due to poor acoustical window. No adnexal free fluid. No adnexal masses. FREE FLUID: None. OTHER: No other significant finding. IMPRESSION: LIVING INTRAUTERINE . EGA 10 weeks 3 days Moderate size subchorionic hemorrhage Trimester of : First trimester - 0 to 13 weeks. TECHNICAL DOCUMENTATION: JOB ID: [id number] [employer]- All Rights Reserved rev-10/13 Reading location - IP/workstation name: [email or web address]
== END ==
LOC: RAD 14:50
PROVIDERS: ATTEND Nurse Practitioner Family
DX: Z34.81 Encounter for supervision of other normal pregnancy, first trimester (principal); Z3A.10 10 weeks gestation of pregnancy
CPT/HCPCS: 76801

== ENCOUNTER → 2019-09-02 | Outpatient (CLI) | payer OTHER ==
--- NOTE | 2019-09-02 16:40 | RADIOLOGY REPORT (SQ) ---
EXAM DESCRIPTION: U/S OB 14+ TRNABD 1GES W/O DOP IMAGES COMPLETED DATE/TIME: 09/02/2019 4:19 pm REASON FOR STUDY: Z34.81 ENCOUNTER FOR SUPRVSN OF NORMAL , SECOND TRIMESTER Z34.82 ENCOUNT ER FOR SUPRVSN OF NORMAL , SECOND TRI COMPARISON: 05/31/2019 TECHNIQUE: Static and Dynamic grayscale imaging performed of gravid uterus using transabdominal appr oach. Additional selected color Doppler and spectral images recorded. All stored on PACS. LIMITATIONS: None. FINDINGS: FETUSES SEEN:1 EGA: 24 weeks 2 days. Calculated using BPD,FL,HC,AC documented on images. No discrepancy with clinic al dates. MADY: 12/21/2019 EFW: 670 grams PERCENTILE: 58 CNYDIE: 10.9 cm. PLACENTA: Anterior. GRADE: I PRESENTATION: Cephalic. ANATOMY: HEART RATE: 141 beats per minute. FOUR CHAMBER HEART: Visualized. THREE VESSEL CORD: Yes. CORD INSERTION: Visualized. KIDNEYS AND BLADDER: Visualized. Appear normal. STOMACH: Visualized. Appears normal. SPINE: Normal as visualized. BRAIN AND LATERAL VENTRICLES: Visualized. Appear normal. OTHER: No other significant finding. MATERNAL ADNEXA: Maternal ovaries not visualized. CERVICAL LENGTH: 2.9 cm. Closed. OTHER: No other significant finding. IMPRESSION: LIVING INTRAUTERINE . ESTIMATED GESTATIONAL AGE 24 WEEKS 2 DAYS. NO VISUALIZED ANOMALIES. Trimester of : Second trimester - 13 weeks 1 day to 27 weeks 6 days. TECHNICAL DOCUMENTATION: JOB ID: [id number] 2010 [employer]- All Rights Reserved Reading location - IP/workstation name: [email or web address]
== END ==
LOC: RAD 14:55
PROVIDERS: ATTEND Midwife
DX: Z34.82 Encounter for supervision of other normal pregnancy, second trimester (principal); Z3A.24 24 weeks gestation of pregnancy
CPT/HCPCS: 76805

== ENCOUNTER 2019-12-11 23:46 | Outpatient (CLI) | payer OTHER ==
[2019-12-12 00:44] LABS: APPEARANCE,URINE CLOUDY; BILIRUBIN,URINE NEGATIVE (NEGATIVE); COLOR,URINE YELLOW; GLUCOSE, URINE NEGATIVE (NEGATIVE); KETONES,URINE NEGATIVE (NEGATIVE); LEUKOCYTE ESTERASE,URINE TRACE (NEGATIVE); NITRITE,URINE NEGATIVE (NEGATIVE); PROTEIN,URINE NEGATIVE (NEGATIVE); URINE SPECIFIC GRAVITY 1.023
[2019-12-12 01:22] LABS: URINE AMPHETAMINES SCREEN NEGATIVE; URINE BARBITURATES SCREEN NEGATIVE; URINE BENZODIAZEPINES SCREEN NEGATIVE; URINE MARIJUANA (THC) SCREEN NEGATIVE; URINE METHADONE SCREEN NEGATIVE; URINE PHENCYCLIDINE SCREEN NEGATIVE
--- NOTE | 2019-12-12 02:23 | Non Stress Test Report ---
Non Stress Test Datetime Report Generated by CPN: 12/12/2019 02:23 DEMOGRAPHIC EGA NST: 37.3 INDICATION Indication for Study (NST) Other: labor check MONITORING Monitor Explained: Monitor Explained; Test Explained; Patient Verbalized Understanding Time on Monitor: 12/12/2019 00:30 Time off Monitor: 12/12/2019 01:40 NST Duration: 70 NST INTERVENTIONS NST Interventions: PO Hydration Physician Notified NST: Dr. Urrutia BABY A: [id number] BABY A Movement : Present Contraction Frequency : occasional FHR Baseline : 140 Accelerations : 15X15 Decelerations : None Variability : Moderate 6-25bpm NST Review: Meets Criteria for Reactive NST NST Review and Verified By : SAIMA Hoffman NST Results: Reactive NST REPORT Report Trigger: Send Report
[2019-12-12 08:56] LABS: URINE COCAINE SCREEN NEGATIVE
== END 2019-12-12 02:14 | disposition home or self-care (01) ==
LOC: LC 23:46
PROVIDERS: ATTEND Obstetrics & Gynecology
DX: O47.1 False labor at or after 37 completed weeks of gestation (principal); Z3A.37 37 weeks gestation of pregnancy
CPT/HCPCS: 80307; 81005

== ENCOUNTER 2019-12-12 07:26 | Inpatient (IN) | payer OTHER ==
[2019-12-12] MEDS ORDERED: CITRIC ACID/SODIUM CITRATE ORAL SOLN 15 ML UDCUP PO ONE (09:01)
[2019-12-12] MEDS ORDERED: CEFAZOLIN 2 GM/D5W RTU 2 GM/50 ML RTUPB IV ONE (09:02)
[2019-12-12] MEDS ORDERED: CITRIC ACID/SODIUM CITRATE ORAL SOLN 15 ML UDCUP ONE (09:02)
[2019-12-12] MEDS ORDERED: KETOROLAC TROMETHAMINE INJ/PF 30 MG/1 ML SDV ONE (09:05)
[2019-12-12] MEDS ORDERED: OXYTOCIN 10 UNIT/ML VIAL ONE (09:05)
[2019-12-12] MEDS ORDERED: FENTANYL CITRATE INJ/PF 100 MCG/2 ML AMPUL ONE (09:05)
[2019-12-12] MEDS ORDERED: GLYCOPYRROLATE INJ 0.4 MG/2 ML VIAL ONE (09:05)
[2019-12-12] MEDS ORDERED: OXYTOCIN/0.9 % SODIUM CHLORIDE 0 UNIT/0 ML RTUINJ ONE (09:06)
[2019-12-12] MEDS ORDERED: MIDAZOLAM 2 MG/2 ML INJ ONE (09:06)
[2019-12-12] MEDS ORDERED: ONDANSETRON HCL INJ/PF 4 MG/2 ML SDV ONE (09:06)
[2019-12-12] MEDS ORDERED: ACETAMINOPHEN 1,000 MG/100 ML RTUPB IV ONE (09:06)
--- NOTE | 2019-12-12 09:14 | Admission Physical ---
Datetime Report Generated by CPN: 12/12/2019 09:13 CURRENT ADMISSION Chief Complaint: Uterine Contractions Indication for Induction: Not Applicable Admit Impression : Term, Intrauterine ; Active Labor Admit Plan: Admit to Unit; Initiate Section Protocol Admit Plan- Other: Pt c/o contractions, pain hx CS x2 with vertical skin incisions in [facility] GBS neg PNC adequate at [facility] No other complications with ALLERGIES Medication Allergies: No Known Allergies (12/12/2019) OBSTETRICAL HISTORY EDC: 12/30/2019 00:00 : 3 Para: 2 Gestational Diabetes: No Rh Sensitization: No Incompetent Cervix: No BERNY: No Infertility: No ART Treatment: No Uterine Anomaly: No IUGR: No Hx Previous C/S: No Macrosomia: No Hx Loss/Stillborn: No PIH: No Hx : No Placenta Previa/Abruption: No Depression/PP Depression: No PTL/PROM: No Post Hemorrhage: No Current Procedures: Ultrasound; NST Obstetrical History Comments: - 2007 c/s unsure why 2015 c/s full term G3 - Current SEE RECORDS Alcohol: No Marijuana : No Cocaine: No Other Illicit Drugs: No Cigarettes: Never Smoker. 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 Surgery: No Heart Disease: No Hosp/Surgery: Yes Autoimmune Disorder: No Anesthetic Complications: No Kidney Disease: No Abnormal Pap Smear: No Neuro/Epilepsy: No Psychiatric Disorders: No Other Medical Diseases: No Hepatitis/Liver Disease: No Significant Family History: No Varicosities/Phlebitis: No Trauma/Violence : No Thyroid Dysfunction: No Medical History Comments: x2 cesearean section, gallbladder INFECTIOUS HISTORY Gonorrhea: No Genital Herpes: No Chlamydia: No Tuberculosis: No Syphilis: No Hepatitis: No HIV/AIDS Exposure: No Rash or Viral Illness: No HPV: No PHYSICAL EXAM General: Normal HEENT: Normal Neurologic: Normal Thyroid: Normal Heart: Normal Lungs: Normal Breast: Normal Back: Normal Abdomen: Normal Genitourinary Exam: Normal Extremities: Normal DTRs: Normal Pelvic Type: Adequate Physical Exam Comments: cervix exam per RN, BBOW noted Vital Signs: Reviewed VAGINAL EXAM Dilatation: 1 Effacement: 80 FETUS A EGA: 37.3 Monitoring: External US FHR- Baseline: 130 Variability: Moderate 6-25bpm Accelerations: 10X10 Decelerations: None FHR Category: Category II Presentation: Vertex Admit Comment: Plan for repeat CS now per Dr. Bolton, unknown incision, has vertical skin incision but likely transverse uterine incision as G1 was full term PLANS FOR LABOR AND DELIVERY Labor and Delivery: None Pain Management: Medications; Epidural; Spinal Feeding Preference: Formula Benefit of Breast Feed Discussed: Yes Circumcision: N/A INFORMED CONSENT Assignment: Bhupinder Bolton MD Signature: with User ID: Serafin : with User ID: Serafin
[2019-12-12 09:20] LABS: ABSOLUTE LYMPHOCYTES (AUTO) 1.3 10^3/uL (0.5-4.7); ABSOLUTE MONOCYTES (AUTO) 0.4 10^3/uL (0.1-1.4); BASOPHILS % (AUTO) 0.2 % (0-2); EOSINOPHILS % (AUTO) 0.3 % (0-6); HEMATOCRIT 38.4 % (36.0-47.0); HEMOGLOBIN 13.1 g/dL (12.0-15.5); LYMPHOCYTES % (AUTO) 13.7 % (13-45); MEAN CORPUSCULAR HEMOGLOBIN 31.1 pg (27.0-33.4); MEAN CORPUSCULAR HGB CONC 34.2 g/dL (32.0-36.0); MEAN CORPUSCULAR VOLUME 91 fl (80-97); MONOCYTES % (AUTO) 4.1 % (3-13); PLATELET COUNT 257 10^3/uL (150-450); RED BLOOD COUNT 4.22 10^6/uL (3.72-5.28); RED CELL DISTRIBUTION WIDTH 13.6 % (11.5-14.0); SEGMENTED NEUTROPHILS % (AUTO) 81.7 % (42-78); TOTAL CELLS COUNTED % (AUTO) 100 %; WHITE BLOOD COUNT 9.8 10^3/uL (4.0-10.5)
[2019-12-12] MEDS ORDERED: ACETAMINOPHEN 1,000 MG/100 ML RTUPB IV PRN (10:20)
[2019-12-12] MEDS ORDERED: PROMETHAZINE HCL INJ 25 MG/1 ML VIAL IV PRN (10:20)
[2019-12-12] MEDS ORDERED: OXYTOCIN/0.9 % SODIUM CHLORIDE 30 UNIT/500 ML RTUINJ IV PRN (10:20)
[2019-12-12] MEDS ORDERED: ACETAMINOPHEN 325 MG TABLET PO PRN (10:20)
[2019-12-12] MEDS ORDERED: RINGERS SOLUTION,LACTATED 1,000 ML IV PRN (10:20)
[2019-12-12] MEDS ORDERED: MEASLES,MUMPS&RUBELLA VACC/PF 0.5 ML VIAL SUBCUT PRN (10:20)
[2019-12-12] MEDS ORDERED: DIPH/PERTUSS(ACELL)/TETANUS VAC/PF 0.5 ML SYR (>=10YO) IM PRN (10:20)
--- NOTE | 2019-12-12 10:23 | PDOC DELIVERY SUMMARY ---
Delivery Summary - Maternal Risk Factors: Previous Ruptured Membranes: AROM Fluids: Meconium Stained - Delivery Presentation: Vertex Heart Rate Monitoring: Externally Uterine Contraction Monitoring: External Support Person Present: Yes Location: OR : Emergency Nuchal Cord: No - Medications Type of Anesthesia:: Spinal
--- NOTE | 2019-12-12 10:25 | Operative Report ---
Operative Report DATE OF SURGERY: 12/12/19 PREOPERATIVE DIAGNOSIS: IUP 37 weeks spontaneous labor prior section x2 POSTOPERATIVE DIAGNOSIS: Same OPERATION: Repeat low transverse section delivery of a viable male SURGEON: LARRY LAM ANESTHESIA: Spinal TISSUE REMOVED OR ALTERED: Placenta ESTIMATED BLOOD LOSS: 1000 cc PROCEDURE: The patient was taken to the operating room where spinal anesthesia was obtained and found to be adequate. She was then prepped and draped in the normal sterile fashion and placed in the dorsal supine position with a leftward tilt. A midline incision skin through an existing eschar was then made and carried through to the underlying layers of the fascia with the scalpel. The fascia was incised in the midline and the incision extended laterally with the Coats scissors. The superior aspect of the fascial incision was then grasped with [place] clamps elevated and the underlying rectus muscles dissected off bluntly. Attention was then turned to the inferior aspect of the fascial incision which in a similar fashion was grasped, tented up with Tre clamps, and the rectus muscles dissected off bluntly. The rectus muscles were then in the midline and the peritoneum at the amount identified and entered bluntly. The peritoneal incision was then extended superiorly and inferiorly with good visualization of the bladder. [The bladder blade was inserted and the vesicouterine peritoneum identified grasped with Vincentian pickups and entered sharply with the Metzenbaum scissors. His incision was then extended laterally with the Metzenbaum scissors and a bladder flap created digitally. The bladder blade was then reinserted and the lower uterine segment incised in a transverse fashion with the scalpel. The uterine incision was then extended bluntly. The bladder blade was removed and the 's head was delivered from cephalic presentation atraumatically. The nose and mouth were suctioned and the cord doubly clamped and cut. And the infant was handed off to waiting pediatricians. The placenta was then delivered manully and the uterus exteriorized and cleared of all clots and debris. The uterine incision was then repaired with 1-0 Vicryl in a running locked fashion. A second layer of the same suture was used to obtain hemostasis via imbrication of the initial layer. The uterus was returned to the patient's abdomen. The gutters were cleared of all clots and debris. All operative sites were noted to be hemostatic. The fascia was reapproximated with 0 Vicryl in a running fashion from each lateral edge to the midline. Skin was closed with absorbable sadaf. the patient tolerated the procedure well. Sponge lap needle and instrument counts are correct -2. 2 g of Ancef were given prior to skin incision. The patient was taken to the recovery area awake and in stable condition.
[2019-12-12] MEDS ORDERED: OXYTOCIN/0.9 % SODIUM CHLORIDE 30 UNIT/500 ML RTUINJ ONE (11:02)
--- NOTE | 2019-12-12 11:38 | Warning Signs in Babies ---
VOD Warning Signs Datetime Report Generated by [facility]: 12/12/2019 11:37 VOD#608 -Warning Signs in Babies: Needs to be viewed. (12/12/2019 00:00:Charo Darby RN)
--- NOTE | 2019-12-12 11:43 | Delivery Summary ---
Del Sum A-C Datetime Report Generated by CPN: 12/12/2019 11:43 DELIVERY PERSONNEL DELIVERY PERSONNEL: [id number] Delivery Doctor:: Bhupinder Bolton MD [employer] SALES CONSULTANT:: Mike Hall CRNA Capsule Filler:: Charo Darby RN Neonatal Nurse Practitioner:: KATHY [place] Nursery Nurse:: Ashleigh Sequeira RN Bliss Press Operator/NURSING PROGRAM COORDINATOR: Susi Mccloud RN Bliss Press Operator/NURSING PROGRAM COORDINATOR: Jillhawderek Christie-Mulligan, ST MATERNAL INFORMATION Delivery Anesthesia: Spinal Medications After Delivery: Pitocin 30 Units in 500ml NS/D5W; Pitocin Drip 20 Units/1000ml NSS Delivery QBL: 652 Maternal Complications: None LABOR SUMMARY EDC: 12/30/2019 00:00 No. Babies in Womb: 1 Attempted: No Labor Anesthesia: None LABOR INFORMATION Reason for Induction: Not Applicable Onset of Labor: 12/12/2019 05:20 Oxytocin: N/A Group B Beta Strep: Negative Antibiotics # of Doses: 0 Steroids Given: None Reason Steroids Not Administered: Not Applicable STAGES OF LABOR Stage 3 hr: 0 Stage 3 min: 0 Total Time in Labor hr: 4 Total Time in Labor min: 42 VAGINAL DELIVERY Episiotomy: None Laceration #1: None Laceration Extension #1: N/A Laceration Repair: Not Applicable Sponge Count Correct: N/A Sharps Count Correct: N/A CSECTION DELIVERY Primary Indication: Repeat Elective CSection Urgency: Non-Scheduled CSection Incidence: Repeat Labor: Labor Elective: Elective CSection Incision: Classical BABY A INFORMATION Infant Delivery Date/Time: 12/12/2019 10:02 Method of Delivery: Nurse Controlled Delivery: No Born in Route : No : N/A Forceps: N/A Vacuum Extraction: N/A Shoulder Dystocia : No PRESENTATION/POSITION BABY A Presentation: Cephalic Cephalic Presentation: Vertex Breech Presentation: N/A PLACENTA INFORMATION BABY A Placenta Delivery Time : 12/12/2019 10:02 Placenta Method of Delivery: Manual Removal Placenta Status: Delivered SCORES BABY A Heart Rate 1 min: >100 bpm Resp Effort 1 min: Good Cry Reflex Irritability 1 min: Cough or Sneeze or Pulls Away Muscle Tone 1 min: Active Motion Color 1 min: Body [place], Extremities Blue Resuscitation Effort 1 min: Tactile Stimulation SCORE 1 MIN: 9 Heart Rate 5 min: >100 bpm Resp Effort 5 min: Good Cry Reflex Irritability 5 min: Cough or Sneeze or Pulls Away Muscle Tone 5 min: Active Motion Color 5 min: Body [place], Extremities Blue SCORE 5 MIN: 9 INFORMATION BABY A Gestational Age at Delivery: 37.3 Gestational Status: Early Term- 37- 38.6 Weeks Outcome : Liveborn Condition : Stable Infant Sex: Male WEIGHT/LENGTH BABY A Birthweight (gm): 3635 Weight (lb): 8 Infant Weight (oz): 0 Length (in): 21.00 Infant Length (cm): 53.34 CORD INFORMATION BABY A No. Cord Vessels: 3 Nuchal Cord : N/A Cord Blood Taken: Yes-For Eval (Mom's Blood Type - or O+) ASSESSMENT BABY A Skin to Skin: No BABY B INFORMATION : N/A SIGNATURES : I was personally available for consultation and serving as supervising physician for the MLP.
[2019-12-12] MEDS: CEFAZOLIN 2 GM/D5W RTU 2 GM/50 ML RTUPB IV SCH ×3 (11:48→18:16)
[2019-12-12] MEDS: OXYCODONE-ACETAMINOPHEN 5-325 MG TABLET PO PRN ×2 (15:31→23:58)
[2019-12-12 15:55] LABS: APPEARANCE,URINE CLEAR; BILIRUBIN,URINE NEGATIVE (NEGATIVE); COLOR,URINE STRAW; GLUCOSE, URINE NEGATIVE (NEGATIVE); KETONES,URINE NEGATIVE (NEGATIVE); LEUKOCYTE ESTERASE,URINE NEGATIVE (NEGATIVE); NITRITE,URINE NEGATIVE (NEGATIVE); PROTEIN,URINE NEGATIVE (NEGATIVE); URINE SPECIFIC GRAVITY 1.005; UROBILINOGEN,URINE NEGATIVE mg/dL (<2.0)
[2019-12-12 16:11] LABS: URINE AMPHETAMINES SCREEN NEGATIVE; URINE BARBITURATES SCREEN NEGATIVE; URINE COCAINE SCREEN NEGATIVE; URINE MARIJUANA (THC) SCREEN NEGATIVE; URINE METHADONE SCREEN NEGATIVE; URINE PHENCYCLIDINE SCREEN NEGATIVE
[2019-12-12 16:17] LABS: URINE BENZODIAZEPINES SCREEN UNCONFIRMED POSITIVE
[2019-12-12] MEDS: DOCUSATE SODIUM 100 MG CAPSULE PO SCH (17:29)
[2019-12-13] MEDS: CEFAZOLIN 2 GM/D5W RTU 2 GM/50 ML RTUPB IV SCH ×3 (00:10→14:39)
[2019-12-13] MEDS: MORPHINE SULFATE 10 MG/ML INJ IM PRN ×2 (02:38→10:46)
[2019-12-13] MEDS: SIMETHICONE 80 MG TAB.CHEW PO PRN ×3 (06:17→18:25)
[2019-12-13 07:31] LABS: HEMATOCRIT 32.6 % (36.0-47.0); HEMOGLOBIN 11.3 g/dL (12.0-15.5); MEAN CORPUSCULAR HEMOGLOBIN 31.3 pg (27.0-33.4); MEAN CORPUSCULAR HGB CONC 34.6 g/dL (32.0-36.0); MEAN CORPUSCULAR VOLUME 90 fl (80-97); PLATELET COUNT 228 10^3/uL (150-450); RED BLOOD COUNT 3.61 10^6/uL (3.72-5.28); RED CELL DISTRIBUTION WIDTH 13.3 % (11.5-14.0); WHITE BLOOD COUNT 11.2 10^3/uL (4.0-10.5)
[2019-12-13] MEDS: OXYCODONE-ACETAMINOPHEN 5-325 MG TABLET PO PRN (08:49)
--- NOTE | 2019-12-13 10:36 | PDOC PROGRESS REPORT ---
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 with social economist, hsb at [facility], voices no c/o, just medicated for pain, scant bleeding, breast and bottle feeding Physical Exam (OB) Vital Signs: Temp Pulse Resp BP Pulse Ox 97.9 F 74 18 103/57 L 97 12/13/19 07:30 12/13/19 07:30 12/13/19 07:30 12/13/19 07:30 12/13/19 07:30 Intake & Output 12/12/19 12/13/19 12/14/19 06:59 06:59 06:59 Intake Total 900 Output Total 2024 400 Balance -1125 -400 Weight 101.8 kg - PIH/Pre-Eclampsia DTR's: 2 + Clonus: Negative Headache: Absent Epigastric Pain: No Visual Changes: No - Dressing Removed: No - pressure dressing intact Incision: Dressing - Lochia Lochia Amount: Small 10-25 ml Lochia Color: Rubra/Red - Abdomen Description: Soft, Round Hernia Present: No Fundal Description: Firm, Midline Fundal Height: u/u - u/2 Objective-Diagnostic Laboratory: 12/13/19 06:40 12/12/19 12/13/19 15:18 06:40 WBC 11.2 H RBC 3.61 L Hgb 11.3 L Hct 32.6 L MCV 90 MCH 31.3 MCHC 34.6 RDW 13.3 Plt Count 228 Urine Color STRAW Urine Appearance CLEAR Urine pH 7.0 Ur Specific [place] 1.005 Urine Protein NEGATIVE Urine Glucose (UA) NEGATIVE Urine Ketones NEGATIVE Urine Blood NEGATIVE Urine Nitrite NEGATIVE Ur Leukocyte Esterase NEGATIVE Assessment and Plan(PN) - Assessment and Plan (1) Encounter for maternal care for vertical scar from repeat delivery Is this a current diagnosis for this admission?: Yes (2) Active labor at term Is this a current diagnosis for this admission?: No - Time Spent with Patient Time with patient: Less than 15 minutes Medications reviewed and adjusted accordingly: Yes - Disposition Anticipated Discharge: Home Within: within 24 hours
[2019-12-13] MEDS: PRENATAL VITAMIN W DHA CAPSULE PO SCH (10:46)
[2019-12-13] MEDS: DOCUSATE SODIUM 100 MG CAPSULE PO SCH ×2 (10:46→18:13)
[2019-12-13] MEDS: IBUPROFEN 800 MG TABLET PO SCH ×2 (12:01→18:13)
[2019-12-14] MEDS: IBUPROFEN 800 MG TABLET PO SCH ×3 (00:54→12:00)
[2019-12-14] MEDS: SIMETHICONE 80 MG TAB.CHEW PO PRN ×3 (00:59→10:12)
[2019-12-14] MEDS: PRENATAL VITAMIN W DHA CAPSULE PO SCH (10:11)
[2019-12-14] MEDS: DOCUSATE SODIUM 100 MG CAPSULE PO SCH (10:11)
--- NOTE | 2019-12-14 10:17 | PDOC PROGRESS REPORT ---
Subjective-OB Progress Note for:: 12/14/19 Subjective: Doing better today, ready to go home, less pain, hsb at [facility], voiding, passing gas Physical Exam (OB) Vital Signs: Temp Pulse Resp BP Pulse Ox 97.9 F 62 16 103/74 98 12/14/19 07:21 12/14/19 07:21 12/14/19 07:21 12/14/19 07:21 12/14/19 07:21 Intake & Output 12/13/19 12/14/19 12/15/19 06:59 06:59 06:59 Intake Total 900 Output Total 2024 1300 Balance -1125 -1300 Weight 101.8 kg - PIH/Pre-Eclampsia DTR's: 2 + Clonus: Negative Headache: Absent Epigastric Pain: No Visual Changes: No - Dressing Removed: No - pressure dressing intact Incision: Well Approximated Closure Type: [place] [facility] - Lochia Lochia Amount: Scant < 10 ml Lochia Color: Rubra/Red - Abdomen Description: Tender Hernia Present: No Fundal Description: Firm, Midline Fundal Height: u/u - u/2 Objective-Diagnostic Laboratory: 12/13/19 06:40 Assessment and Plan(PN) - Assessment and Plan (1) Encounter for maternal care for vertical scar from repeat delivery Is this a current diagnosis for this admission?: Yes (2) Active labor at term Is this a current diagnosis for this admission?: Yes - Time Spent with Patient Time with patient: Less than 15 minutes Medications reviewed and adjusted accordingly: Yes - Disposition Anticipated Discharge: Home Within: within 24 hours
--- NOTE | 2019-12-14 10:25 | PDOC DISCHARGE SUMMARY ---
Impression - Admit/DC Date/PCP Admission Date/Primary Care Provider: 12/12/19 08:46 SHARRI DURAN CNM Discharge Date: 12/14/19 - Discharge Diagnosis (1) Encounter for maternal care for vertical scar from repeat delivery Is this a current diagnosis for this admission?: Yes (2) Active labor at term Is this a current diagnosis for this admission?: Yes - Additional Information Resuscitation Status: Full Code Discharge Diet: As Tolerated, Regular Discharge Activity: Activity As Tolerated, No Driving, No Lifting Over 10 Pounds, No Lifting/Push/Pulling, Pelvic Rest, No tub bath Referrals: SHARRI DURAN CNM [Primary Care Provider] - ([facility] 1 week) Prescriptions: Oxycodone HCl/Acetaminophen [Percocet 5-325 mg Tablet] 1 tab PO Q4HP PRN #20 tablet PRN Reason: Ibuprofen [Motrin 800 mg Tablet] 800 mg PO Q6 #30 tablet Home Medications: Prenat 115/Iron Fum/Folic/Dss [ 19 Tablet] 1 tab PO DAILY 12/12/19 Ibuprofen [Motrin 800 mg Tablet] 800 mg PO Q6 #30 tablet 12/14/19 Oxycodone HCl/Acetaminophen [Percocet 5-325 mg Tablet] 1 tab PO Q4HP PRN #20 tablet 12/14/19 HPI Gestational Age: 37 Reason(s) for Admission: Onset of Labor, Ceasarean Section-Repeat, Advanced Maternal Age Procedures: NST, Ultrasound Hospital Course Hospital Course: post op Results Laboratory Results: WBC 11.2 10^3/uL (4.0-10.5) H 12/13/19 06:40 RBC 3.61 10^6/uL (3.72-5.28) L 12/13/19 06:40 Hgb 11.3 g/dL (12.0-15.5) L 12/13/19 06:40 Hct 32.6 % (36.0-47.0) L 12/13/19 06:40 MCV 90 fl (80-97) 12/13/19 06:40 MCH 31.3 pg (27.0-33.4) 12/13/19 06:40 MCHC 34.6 g/dL (32.0-36.0) 12/13/19 06:40 RDW 13.3 % (11.5-14.0) 12/13/19 06:40 Plt Count 228 10^3/uL (150-450) 12/13/19 06:40 Lymph % (Auto) 13.7 % (13-45) 12/12/19 08:59 [place] % (Auto) 4.1 % (3-13) 12/12/19 08:59 Eos % (Auto) 0.3 % (0-6) 12/12/19 08:59 Baso % (Auto) 0.2 % (0-2) 12/12/19 08:59 Absolute Neuts (auto) 8.0 10^3/uL (1.7-8.2) 12/12/19 08:59 Absolute Lymphs (auto) 1.3 10^3/uL (0.5-4.7) 12/12/19 08:59 Absolute Monos (auto) 0.4 10^3/uL (0.1-1.4) 12/12/19 08:59 Absolute Eos (auto) 0.0 10^3/uL (0.0-0.6) 12/12/19 08:59 Absolute Basos (auto) 0.0 10^3/uL (0.0-0.2) 12/12/19 08:59 Seg Neutrophils % 81.7 % (42-78) H 12/12/19 08:59 Urine Color STRAW 12/12/19 15:18 Urine Appearance CLEAR 12/12/19 15:18 Urine pH 7.0 (5.0-9.0) 12/12/19 15:18 Ur Specific [place] 1.005 12/12/19 15:18 Urine Protein NEGATIVE mg/dL (NEGATIVE) 12/12/19 15:18 Urine Glucose (UA) NEGATIVE mg/dL (NEGATIVE) 12/12/19 15:18 Urine Ketones NEGATIVE mg/dL (NEGATIVE) 12/12/19 15:18 Urine Blood NEGATIVE (NEGATIVE) 12/12/19 15:18 Urine Nitrite NEGATIVE (NEGATIVE) 12/12/19 15:18 Urine Bilirubin NEGATIVE (NEGATIVE) 12/12/19 15:18 Urine Urobilinogen NEGATIVE mg/dL (<2.0) 12/12/19 15:18 Ur Leukocyte Esterase NEGATIVE (NEGATIVE) 12/12/19 15:18 Urine Ascorbic Acid NEGATIVE (NEGATIVE) 12/12/19 15:18 Urine Opiates Screen NEGATIVE 12/12/19 15:18 Urine Methadone Screen NEGATIVE 12/12/19 15:18 Ur Barbiturates Screen NEGATIVE 12/12/19 15:18 Ur Phencyclidine Scrn NEGATIVE 12/12/19 15:18 Ur Amphetamines Screen NEGATIVE 12/12/19 15:18 U Benzodiazepines Scrn UNCONFIRMED POSITIVE 12/12/19 15:18 Urine Cocaine Screen NEGATIVE 12/12/19 15:18 U Marijuana (THC) Screen NEGATIVE 12/12/19 15:18 RPR NONREACTIVE (NONREACTIVE) 12/12/19 12:57 Blood Type O POSITIVE 12/12/19 08:59 Antibody Screen NEGATIVE 12/12/19 08:59 Plan Health Concerns: incisional pain, Plan of Treatment: d/c home, meds sent to [facility] per [facility] Goals: no complications Time Spent: Less than 30 Minutes
--- NOTE | 2019-12-14 10:26 | PDOC PROGRESS REPORT ---
Subjective-OB Progress Note for:: 12/14/19 Subjective: ready to go home, , no c/o Physical Exam (OB) Vital Signs: Temp Pulse Resp BP Pulse Ox 97.9 F 62 16 103/74 98 12/14/19 07:21 12/14/19 07:21 12/14/19 07:21 12/14/19 07:21 12/14/19 07:21 Intake & Output 12/13/19 12/14/19 12/15/19 06:59 06:59 06:59 Intake Total 900 Output Total 2024 1300 Balance -1125 -1300 Weight 101.8 kg - PIH/Pre-Eclampsia DTR's: 2 + Clonus: Negative Headache: Absent Epigastric Pain: No Visual Changes: No - Dressing Removed: No - pressure dressing intact Incision: Well Approximated Closure Type: [place] - Lochia Lochia Amount: Scant < 10 ml Lochia Color: Rubra/Red - Abdomen Description: Tender Hernia Present: No Fundal Description: Firm, Midline Fundal Height: u/u - u/2 Objective-Diagnostic Laboratory: 12/13/19 06:40 Assessment and Plan(PN) - Assessment and Plan (1) Encounter for maternal care for vertical scar from repeat delivery Is this a current diagnosis for this admission?: Yes (2) Active labor at term Is this a current diagnosis for this admission?: Yes - Time Spent with Patient Time with patient: Less than 15 minutes Medications reviewed and adjusted accordingly: Yes - Disposition Anticipated Discharge: Home Within: within 24 hours
[2019-12-14 12:10] VITALS: BP 98/62
[2019-12-14] MEDS: OXYCODONE-ACETAMINOPHEN 5-325 MG TABLET PO PRN (15:04)
== END 2019-12-14 17:30 | disposition home or self-care (01) | DRG 788 ==
LOC: LC 07:26 → LR 08:46 → 2S 12:25
PROVIDERS: ADMIT Obstetrics & Gynecology Gynecology; ATTEND Obstetrics & Gynecology Gynecology
PROC: 10D00Z1 Extraction of Products of Conception, Low, Open Approach (ICD-10-PCS; principal; 2019-12-12)
DX: O34.211 Maternal care for low transverse scar from previous cesarean delivery (principal); O77.0 Labor and delivery complicated by meconium in amniotic fluid; Z3A.37 37 weeks gestation of pregnancy; Z37.0 Single live birth
CPT/HCPCS: 1961; 36415; 59025; 80307; 81005; 85025; 85027; 86592; 86850; 86900; 86901; 88307; 94760; 94799; 99140; C1758; J0131; J0690; J1885; J2250; J2270; J2405; J2590; J3010; J3490; J7120